=== PATIENT | male | born 1950 | race Caucasian/White ===

== ENCOUNTER 2018-09-25 22:31 | Inpatient (IN) | payer MEDICARE, OTHER ==
[~2018-09-25] VITALS: Ht 175.3 cm; Wt 83.7 kg
[2018-09-25 23:54] LABS: PCO2 Arterial 26.8 mmHg (35-45); PO2 Arterial 57.4 mmHg (80-100); pH Blood Arterial 7.52 (7.35-7.45)
[2018-09-26 00:06] LABS: BASOPHILS ABSOLUTE AUTO 0.01 K/mm3 (0.00-0.23); BASOPHILS PERCENT AUTO 0 % (0-2); EOSINOPHILS ABSOLUTE AUTO 0.02 K/mm3 (0.00-0.68); EOSINOPHILS PERCENT AUTO 0 % (0-6); Hemoglobin 16.3 g/dL (13.5-17.5); IMMATURE GRAN ABSOLUTE AUTO 0.05 K/mm3 (0.00-0.10); IMMATURE GRAN PERCENT AUTO 0 % (0-1); LYMPHOCYTES ABSOLUTE AUTO 3.42 K/mm3 (0.84-5.20); LYMPHOCYTES PERCENT AUTO 24 % (21-46); MONOCYTES ABSOLUTE AUTO 1.25 K/mm3 (0.16-1.47); MONOCYTES PERCENT AUTO 9 % (4-13); Mean Corpuscular HGB 33.6 pg (26.0-34.0); Mean Corpuscular HGB Conc 34.7 g/dL (31.5-36.5); Mean Corpuscular Volume 97 fL (80-100); Mean Platelet Volume 11.6 fL (9.1-12.4); NEUTROPHILS ABSOLUTE AUTO 9.29 K/mm3 (1.96-9.15); NEUTROPHILS PERCENT AUTO 66 % (41-73); Platelet Count 198 K/mm3 (150-400); RDW Coefficient Variation 13.5 % (11.7-14.2); RDW Standard Deviation 49.1 fL (35.1-46.3); Red Blood Cell Count 4.85 M/mm3 (4.30-5.90); White Blood Cell Count 14.04 K/mm3 (4.00-11.30)
[2018-09-26 00:29] LABS: Alanine Aminotransfer (ALT/SGP 146 U/L (12-78); Albumin, Blood 3.4 g/dL (3.4-5.0); Albumin/Globulin Ratio 0.9 (0.8-1.8); Alk Phos 72 U/L (50-136); Anion Gap 12 mmol/L (6-16); Aspartate Aminotrans (AST/SGOT 488 U/L (12-37); Bilirubin, Total 1.9 mg/dL (0.1-1.0); Blood Urea Nitrogen 33 mg/dL (8-24); Bun/Creatinine Ratio 33.8 (12.0-20.0); CO2, Blood 21 mmol/L (21-32); Calcium, Blood 8.8 mg/dL (8.5-10.1); Chloride, Blood 101 mmol/L (98-108); Creatinine, Blood 0.98 mg/dL (0.60-1.20); Globulin, Blood 3.9 g/dL (2.2-4.0); Glomerular Filtration Rate >60 (60-); Glucose, Blood 105 mg/dL (70-99); Potassium, Blood 4.1 mmol/L (3.5-5.5); Salicylate <1.7 mg/dL (2.8-20.0); Sodium, Blood 134 mmol/L (136-145); Total Protein, Blood 7.3 g/dL (6.4-8.2)
[2018-09-26 00:31] LABS: Source, Urine Clean Catch
[2018-09-26 00:34] LABS: Bilirubin, Urine Neg (Neg); Blood, Urine Neg (Neg); Glucose Qualitative, Urine Neg (Neg); Ketones, Urine 1+ (Neg); Leukocyte Esterase, Urine 1+ (Neg); Nitrite, Urine Neg (Neg); Protein, Urine 1+ (Neg); Specific Gravity, Urine 1.015 (1.003-1.022); Urobilinogen, Urine 1+ (Normal)
[2018-09-26 00:50] LABS: Appearance, Urine Clear (Clear); Color, Urine Amber (P-Yellow); U Amphetamine Screen Not Detected; U Barbituate Screen Not Detected; U Benzodiazapine Screen Not Detected; U Buprenorphine Screen Not Detected; U Cannabinoids Screen DETECTED; U Cocaine Screen Not Detected; U Methadone Screen Not Detected; U Methamphetamine Screen Not Detected; U Opiates Screen Not Detected; U Oxycodone Screen Not Detected; U Phencyclidine Screen Not Detected; U Propoxyphene Screen Not Detected
[2018-09-26 00:51] LABS: Amorphous Light (0-Heavy); Bacteria Few /hpf; Mucus Light (0-Heavy); Red Blood Cells, Urine Not Seen /hpf (0-2); Squamous Epithelial Cells Few /hpf (Few); White Blood Cells, Urine 0-2 /hpf (0-5)
[2018-09-26 01:23] LABS: International Normalized Ratio 1.08; Prothrombin Time Results 11.4 Sec (9.7-11.5)
[2018-09-26 05:27] LABS: Anion Gap 11 mmol/L (6-16); Blood Urea Nitrogen 28 mg/dL (8-24); Bun/Creatinine Ratio 29.7 (12.0-20.0); CO2, Blood 20 mmol/L (21-32); Calcium, Blood 8.1 mg/dL (8.5-10.1); Chloride, Blood 104 mmol/L (98-108); Creatinine, Blood 0.94 mg/dL (0.60-1.20); Glomerular Filtration Rate >60 (60-); Glucose, Blood 102 mg/dL (70-99); Potassium, Blood 3.8 mmol/L (3.5-5.5); Sodium, Blood 135 mmol/L (136-145)
--- NOTE | 2018-09-26 05:31 | NUR ---
PATIENT ARRIVED TO [facility] AT APPROX 0245 VIA GURNEY FROM ED, PATIENT ANSWERING QUESTIONS CORRECTLY WITH INTERMITTENT BOUTS OF WORD SALAD. PATIENTS SISTER AND [id number] HELPED TO DO PATIENTS ADMISSION HX. PATIENT PASSED BEDSIDE SWALLOW SCREEN, WAS ABLE TO TAKE PILLS WHOLE WITH NO ISSUES. PATIENT ADMISSION COMPLETED, ORIENTED TO ROOM/CALL LIGHT AND HOSPITAL POLICIES. PATIENT VERY SLOW TO RESPOND AND DOES NOT SEEM TO UNDERSTAND SOME OF THE TEACHING. PATIENT VERY PARANOID AND STATING THAT COMPUTERS ARE TAKING OVER OUR MINDS. PATIENT INTERMITTENT LETHARGIC OR SQUIRMING IN BED STATING LEFT AND RIGHT LEG (INNER THIGH AREAS) VERY SORE, LEFT LEG SWOLLEN COMPARED TO RIGHT. 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 PATIENT VSS, CALL LIGHT WITHIN REACH, BED LOW AND LOCKED WITH EXIT ALARM ON. PATIENT MONITORED CLOSELY.
[2018-09-26 05:44] LABS: Thyroid Stimulating Hormone 1.66 uIU/mL (0.360-4.800)
[2018-09-26 05:51] LABS: Troponin I 8.7 ng/mL (0.000-0.040)
--- NOTE | 2018-09-26 08:00 | NUR ---
PT LAYING IN BED WITH EYES CLOSED, WAKES EASILY, WAS ABLE TO ANSWER ORIENTATION QUESTIONS, KNOWS WHERE HE IS BUT DOESN'T REMEBER GETTING HERE. DENIES ANY COMPLAINTS OF PAIN, DOES MAKE CONFUSED STATEMENTS AT TIMES. HE IS COOPERATIVE WITH CARE, FOLLOWS MOST COMMANDS WELL, LUNGS ARE COURSE WITH INSP/EXP WHEEZING T/O, DIM IN BASES, RESP EVEN AND UNLABORED, NO COUGH NOTED, HRR, TELE IN PLACE RUNNING SR PER MONITOR, SEE STRIP, 3+ EDEMA NOTED TO B/L LE, PPFAINT, CAP REFILL <3SEC, VS STABLE, AFEBRILE, IV SITES ARE CLEAR AND PATENT, INFUSING HEPERIN GTT ORDERED, BTX4, ABD ROUND SOFT NONTENDER, HAS NOT VOIDED TODAY, BUT HAS URINAL AT BEDSIDE, SKIN HAS MOTELING TO B/L LE, LEFT LEG IS A BIT MORE SWOLLEN THAN RIGHT, WITH MORE REDNESS, MAEW, BUT IS UNSTEADY, ABLE TO WALK TO BR. PUPILS SLUGGISH. CALL LIGHT IN REACH.
[2018-09-26 09:38] LABS: Albumin, Blood 2.9 g/dL (3.4-5.0); Anion Gap 9 mmol/L (6-16); Blood Urea Nitrogen 26 mg/dL (8-24); Bun/Creatinine Ratio 28.7 (12.0-20.0); CO2, Blood 22 mmol/L (21-32); Calcium, Blood 7.7 mg/dL (8.5-10.1); Chloride, Blood 104 mmol/L (98-108); Creatinine, Blood 0.91 mg/dL (0.60-1.20); Glomerular Filtration Rate >60 (60-); Glucose, Blood 96 mg/dL (70-99); Phosphorus, Blood 2.2 mg/dL (2.5-4.9); Potassium, Blood 3.7 mmol/L (3.5-5.5); Sodium, Blood 135 mmol/L (136-145)
--- NOTE | 2018-09-26 10:13 | NUR ---
Echocardiogram completed.
--- NOTE | 2018-09-26 10:13 | NUR ---
Echocardiogram completed.
--- NOTE | 2018-09-26 12:50 | NUR ---
[facility] HERE TO TAKE MORENO TO VELOCITY SHOOTER FOR ANGIO. FAMILY IN ROOM, CONSENT WAS SIGNED.
--- NOTE | 2018-09-26 16:02 | NUR ---
zora has a low b/p 89/61, call to Dr. Saravia, he ordered a 500mls bolus, this was started, family in the room. pt is still very sleepy. call light in reach. tr band looks good.
--- NOTE | 2018-09-26 19:42 | NUR ---
PM NOTE. ASSUMED CARE OF PT APROX 1900, PT IS A&Ox2 BUT IS PLEASENT AND COOPERATIVE WITH CARE AND ABLE TO FOLLOW DIRECTIONS BUT IS NOT AT HIS BASELINE. PT IS S/P ANGIO WITH NO INTERVENTIONS. TR BAND IS IN PLACE ON THE RIGHT WRIST, SMALL AMOUNT OF BLOOD IS NOTED, 4MLS OF AIR LEFT IN THE BAND PER DAY SHIFT RN. ARM BOARD IS IN PLACE, THIS RN HAS NOTED THAT PT IS CONFUSED AND HAS BEEN PULLING ON THE ARM BOARD AND IS FORGETFUL OF RESTRICTIONS OF THAT WRIST. TELE INTACT, SR IN THE 70'S PER CUSTOMER ACCOUNT EXECUTIVE. PT'S BP 98/59, NO EDEMA NOTED ON ASSESSMENT. PT'S L/S CLEAR T/O WITH FINE CRACKELS IN THE RIGHT BASE, PT CURRENTLY ON RA WITH STATS >90%. BT PRESENT AND HYPOACTIVE, ABD IS SOFT AND NONTENDER TO PALP. MACK WAS PLACED BY DAY SHIFT RN DUE TO URINARY RETENTION AND HISTORY OF SEVERE PROSTATE ISSUES, PER DAY SHIFT RN PT'S BLADDER SCAN WAS >500MLS. CALL LIGHT IN REACH, BED ALARM IS ON, BED IS LOCKED AND LOW WILL CONTINUE TO MONITOR.
--- NOTE | 2018-09-26 19:47 | NUR ---
PT HAS BEEN VERY SLEEPY SINCE RETURNING TO ROOM AFTER CATH. B/P ON THE LOW SIDE. DID RECIEVE A BOLUS, TR BAND IS WNL, NIGHT RN WILL REMOVE. NO FURHTER CHANGES THIS SHIFT, CALL LIGHT IN REACH.
--- NOTE | 2018-09-26 20:20 | NUR ---
PT UPDATE... PT STATED THAT HE DID NOT FEEL WELL, VS RECHECK SHOWED PT'S BP AT 85/60. PT WAS HYPOTENSIVE EARLIER IN THE DAY S/P ANGIO, HE WAS GIVEN A 500ML FLUID BOLUS THAT IMPROVED HIS BP. PROVIDER WAS CALLED AND ORDERS OBTAINED FOR ANOTHER 500ML FLUID BOLUS AND THIS WAS STARTED. WILL CONTINUE TO MONITOR.
--- NOTE | 2018-09-26 21:18 | NUR ---
PT UPDATE... FLUID BOLUS DONE, PT'S BP IS CURRENTLY 96/60 AND HR 79. PT STATES HE FEELS BETTER, WILL CONTINUE TO MONITOR.
[2018-09-27 04:31] LABS: BASOPHILS ABSOLUTE AUTO 0.03 K/mm3 (0.00-0.23); BASOPHILS PERCENT AUTO 0 % (0-2); EOSINOPHILS ABSOLUTE AUTO 0.09 K/mm3 (0.00-0.68); EOSINOPHILS PERCENT AUTO 1 % (0-6); Hematocrit 45.9 % (37.0-53.0); Hemoglobin 15.6 g/dL (13.5-17.5); IMMATURE GRAN ABSOLUTE AUTO 0.04 K/mm3 (0.00-0.10); IMMATURE GRAN PERCENT AUTO 1 % (0-1); LYMPHOCYTES ABSOLUTE AUTO 2.62 K/mm3 (0.84-5.20); LYMPHOCYTES PERCENT AUTO 32 % (21-46); MONOCYTES ABSOLUTE AUTO 0.76 K/mm3 (0.16-1.47); MONOCYTES PERCENT AUTO 9 % (4-13); Mean Corpuscular HGB 33.1 pg (26.0-34.0); Mean Corpuscular Volume 98 fL (80-100); Mean Platelet Volume 11.4 fL (9.1-12.4); NEUTROPHILS ABSOLUTE AUTO 4.75 K/mm3 (1.96-9.15); NEUTROPHILS PERCENT AUTO 57 % (41-73); Platelet Count 190 K/mm3 (150-400); RDW Coefficient Variation 13.6 % (11.7-14.2); RDW Standard Deviation 48.8 fL (35.1-46.3); Red Blood Cell Count 4.71 M/mm3 (4.30-5.90); White Blood Cell Count 8.29 K/mm3 (4.00-11.30)
--- NOTE | 2018-09-27 06:37 | NUR ---
SHIFT SUMMARY. NO ACUTE CHANGES NOTED SINCE PREVIOUS NOTE, PT'S BP HAS IMPROVED, PT IS STILL SLIGHTLY CONFUSED AT TIMES BUT IS ABLE TO STATE DATE, PLACE, AND THE PRESIDENT. PT'S MACK IS PATENT AND DRAINING TO GRAVITY. CALL LIGHT IN REACH, BED IS LOCKED AND LOW W/BED ALARM ON, WILL CONTINUE TO MONITOR UNTIL REPORT IS GIVEN TO ONCOMING RN.
--- NOTE | 2018-09-27 08:18 | NUR ---
PT LAYING IN BED FAMILY AT BEDSIDE, HE IS AWAKE AND ORIENTED X2, FOLLOWS COMMANDS WELL, IS HUNGRY, LUNGS ARE CLEAR T/O, A BIT DIM IN BASES, RESP EVEN AND UNLABORED, NO COUGH NOTED, HRR, TELE IN PLACE RUNNING SR PER MONITOR, SEE STRIP, TRACE EDEMA NOTED TO B/L LE, PPP +1, CAP REFILL <3SEC, VS STABLE, AFEBRILE, IV SITES ARE CLEAR AND PATENT, TO R HAND, S.L. AT THIS TIME, BTX4, ABD ROUND SOFT NONTENDER, MACK CATH DRAINING ROGELIO URINE, SKIN C/W/D, HAS TR BAND SITE THIS IS WNL, WITH ARM BAND IN PLACE, MAEW, PUPIL EQUAL, A BIT SLUGGISH, CALL LIGHT IN REACH, FAMILY AT BEDSIDE.
--- NOTE | 2018-09-27 12:30 | NUR ---
PT WAS TRANSFERED TO MEDICAL FLOOR, REPORT WAS GIVEN TO RECIEVING NURSE, ALL BELONGINGS WENT WITH PT. HE WAS TRANSFERED VIA WHEELCHAIR.
--- NOTE | 2018-09-27 16:55 | NUR ---
PATIENT ORIENTED TO ROOM. SPOKE WITH PATIENT ABOUT CHANTIX USE AND THE CONTINUATION OF SMOKING. WORKING WITH PHYSICAL THERAPY TODAY. POSSIBLE DISCHARGE HOME TOMORROW. CALL LIGHT IN REACH, WILL CONTINUE TO MONITOR
--- NOTE | 2018-09-28 04:24 | NUR ---
SHIFT SUMMARY PT HAS SLEPT FOR MOST OF SHIFT. PT HAD SOME COMPLAINTS OF LEG PAIN AND WAS TX PER EMAR. PT RESPONDED WELL TO TX AND IS CURRENTLY SLEEPING. PT IS BREATHING EASY AND CALL LIGHT IN REACH. PT HAD ONE VOID NOTED THROUGHOUT THE NIGHT.
--- NOTE | 2018-09-28 04:32 | NUR ---
PROVIDER WAS CALLED ABOUT TELEMETRY STATUS ON PT. HE STATED TO HAVE DAY ATTENDING TO DECIDE IF TELEMETRY IS NEEDED TO BE CONTINUED. PT HAD NO COMPLAINTS OF CX PAIN OR SOB.
[2018-09-28] MEDS ORDERED: ASPI81CH PO (13:24)
[2018-09-28] MEDS ORDERED: ATOR40TA PO (13:25)
[2018-09-28] MEDS ORDERED: Lisinopril2.5 MG PO (13:27)
[2018-09-28] MEDS ORDERED: CLOP75 PO (13:27)
[2018-09-28] MEDS ORDERED: VARE1 PO (13:28)
[2018-09-28] MEDS ORDERED: TAMS.4ER PO (13:28)
--- NOTE | 2018-09-28 14:07 | NUR ---
PATIENT DISCHARGED TO HOME WITH SISTER. IV ACCESS REMOVED. DISCUSSED NEW MEDICATIONS WITH PATIENT AND SISTER. ALL QUESTIONS ANSWERED. MEDICATIONS FAXED TO [facility] IN [place]. PATIENT ESCORTED OUT VIA WHEELCHAIR WITH [facility]
== END 2018-09-28 13:52 | disposition home or self-care (01) | DRG 280 ==
LOC: ER 22:31 → PCU 09-26 02:48 → MEDS 09-26 02:48 → PCU 09-26 02:50 → MEDS 09-27 12:48
PROVIDERS: Emergency Medicine; Family Medicine; ADMIT Hospitalist
PROC: 4A023N7 Measurement of Cardiac Sampling and Pressure, Left Heart, Percutaneous Approach (ICD-10-PCS; principal; 2018-09-26)
PROC: B2111ZZ Fluoroscopy of Multiple Coronary Arteries using Low Osmolar Contrast (ICD-10-PCS; 2018-09-26)
DX: I21.4 Non-ST elevation (NSTEMI) myocardial infarction (principal); G92 Toxic encephalopathy; N40.0 Benign prostatic hyperplasia without lower urinary tract symptoms; F12.129 Cannabis abuse with intoxication, unspecified; F17.210 Nicotine dependence, cigarettes, uncomplicated; I25.10 Atherosclerotic heart disease of native coronary artery without angina pectoris
CPT/HCPCS: 36415; 36600; 70450; 71046; 80048; 80053; 80069; 81001; 82140; 82375; 82803; 83605; 83880; 84145; 84443; 84484; 85025; 85610; 85730; 93005; 93010; 93306; 93458; 94640; 94760; 96361; 96374; 97162; 97530; 99152; 99285-25; C1769; C1894; G0480; J1644; J2250; J3010; J7030; Q9967